=== PATIENT | female | born 1940 | race Caucasian/White ===

== ENCOUNTER 2019-08-25 05:40 | Outpatient (RCR) | payer MEDICARE ==
[~2019-08-25] VITALS: Ht 167.6 cm; Wt 79.5 kg
[2019-08-25] VITALS (10 sets, daily range): BP systolic 102–150; BP diastolic 44–69; PULSE 73–100; TEMP 98–98.6
[2019-08-25] MEDS ORDERED: NEURONTIN300 MG/CAP PO (06:08)
[2019-08-25] MEDS ORDERED: LIPITOR20 MG PO (06:08)
[2019-08-25] MEDS ORDERED: IMDUR 30MG30 MG/TAB PO (06:09)
[2019-08-25] MEDS ORDERED: TOPROL XL 25MG25 MG PO (06:09)
[2019-08-25] MEDS ORDERED: PROVIGIL200 MG PO (06:10)
[2019-08-25] MEDS ORDERED: MIRAPEX0.25 MG PO (06:11)
[2019-08-25] MEDS ORDERED: NITROSTAT0.4 MG/TAB SL (06:11)
[2019-08-25] MEDS ORDERED: ZANAFLEX 4MG TAB4 MG PO (06:12)
[2019-08-25] MEDS ORDERED: PROVENTIL0.09 MG/A1 IH (06:14)
[2019-08-25] MEDS ORDERED: ASPIRIN E.C. 8181 MG PO (06:14)
[2019-08-25] MEDS ORDERED: FERROUS SU325 MG/TAB PO (06:15)
[2019-08-25] MEDS ORDERED: PROTONIX 40MG T40 MG PO (06:16)
[2019-08-25] MEDS ORDERED: CEPHALEXIN500 M1 PO (06:16)
[2019-08-25] MEDS ORDERED: HYGROTON 2525 MG/TAB PO (06:17)
[2019-08-25 06:44] LABS: BASO % 0.5 % (0.0-2.0); EOS # 0.3 (0.0-0.7); EOS % 4.1 % (0-4.0); GRAN # 6.2 (1.4-6.5); GRAN % 76.6 % (42.2-75.2); LYMPH # 0.7 (1.2-3.4); LYMPH % 8.1 % (20.0-51.0); MEAN CELL VOLUME 104 fl (80.0-100.0); MEAN CORPUSCULAR HGB CONC 30 g/dl (33.0-37.0); MEAN PLATELET VOLUME 12.3 fl (7.4-10.4); MONO # 0.8 (0.1-0.6); MONO % 10.1 % (1.7-9.3); PLATELET COUNT 181 K/mm3 (130-400); RED BLOOD COUNT 2.03 M/mm3 (4.10-5.30); REDCELL DISTRIBUTION WIDTH-CV 22.2 % (11.5-14.5)
[2019-08-25 06:48] LABS: HEMATOCRIT 21.2 % (37.0-47.0); HEMOGLOBIN 6.3 g/dl (12.5-16.0); MEAN CORPUSCULAR HEMOGLOBIN 31 pg (27.0-31.0)
[2019-08-25 06:55] LABS: ALBUMIN 3.6 gm/dL (3.5-5.0); BILIRUBIN,TOTAL 0.3 mg/dL (0.0-1.0); CALCIUM 8.9 mg/dL (8.4-10.2); POTASSIUM 4.9 mmol/L (3.4-5.0); TOTAL PROTEIN 6.4 gm/dL (6.4-8.2)
[2019-08-25 07:22] LABS: IRON,SERUM 26 ug/dL (35-150)
[2019-08-25 07:31] LABS: TOTAL IRON BINDING CAPACITY 232 ug/dL (265-497)
--- NOTE | 2019-08-25 10:04 | NUR ---
Pt arrived to unit for blood transfusion. Patient is alert and oriented with VSS. Pt HGB of 6.3. Order for 2 units of PRBCs. 1st unit is currently running. Patient denies any medical history. She is difficult as she does not want to answer questions and keeps stating she wants to go home. Informed patient of her dx and why she is here. Denies other needs at this time. Will continue to monitor
--- NOTE | 2019-08-25 10:17 | NUR ---
Pt tolerating transfusion well. Infusion in IV to left forearm. Sitting in bed working on her puzzle. Denies pain, chest pain, SOB. No concerns at this time. Call light within reach, will continue to monitor
--- NOTE | 2019-08-25 14:18 | NUR ---
Pt on her 2nd transfusion to L AC. Tolerating well. In room eating lunch. Denies pain or any other concerns at this time. Call light within reach, will continue to monitor
--- NOTE | 2019-08-25 16:24 | NUR ---
Pt completed both units of blood. Tolerated well. VSS. No pain or concerns at this time. Call light within reach, will continue to monitor
[2019-08-25 17:13] LABS: BASO # 0.1 (0.0-0.2); BASO % 0.7 % (0.0-2.0); EOS # 0.3 (0.0-0.7); EOS % 3.4 % (0-4.0); GRAN # 6.4 (1.4-6.5); GRAN % 77.5 % (42.2-75.2); LYMPH # 0.6 (1.2-3.4); LYMPH % 7.7 % (20.0-51.0); MEAN CORPUSCULAR HGB CONC 31 g/dl (33.0-37.0); MONO # 0.8 (0.1-0.6); MONO % 10.1 % (1.7-9.3); PLATELET COUNT 169 K/mm3 (130-400); RED BLOOD COUNT 2.86 M/mm3 (4.10-5.30); REDCELL DISTRIBUTION WIDTH-CV 22.5 % (11.5-14.5)
[2019-08-25 17:30] LABS: HEMATOCRIT 27.8 % (37.0-47.0); HEMOGLOBIN 8.7 g/dl (12.5-16.0); MEAN CELL VOLUME 97 fl (80.0-100.0); MEAN CORPUSCULAR HEMOGLOBIN 30 pg (27.0-31.0)
--- NOTE | 2019-08-25 18:29 | NUR ---
Pt discharged and taken out by PATIENT CONSUMER MARKETER and VCV worker. IV taken out, catheter tip intact. All questions asked and answered.
== END 2019-08-25 18:00 | disposition home or self-care (01) ==
LOC: COL.ER 05:40 → EUO 05:40 → EDSTATUS 07:41 → MEDICAL 09:26 → EUO 18:00
PROVIDERS: Emergency Medicine
DX: D64.9 Anemia, unspecified (principal)
CPT/HCPCS: OP; P9016

== ENCOUNTER 2019-09-07 18:09 | Inpatient (IN) | payer MEDICARE ==
[2019-09-07] VITALS (9 sets, daily range): BP systolic 85–118; BP diastolic 42–69; PULSE 62–106; TEMP 97.6–98.1
[~2019-09-07] VITALS: Ht 167.6 cm; Wt 81.8 kg
[2019-09-07 19:25] LABS: MEAN CELL VOLUME 106 fl (80.0-100.0); MEAN CORPUSCULAR HGB CONC 29 g/dl (33.0-37.0); MEAN PLATELET VOLUME 12.5 fl (7.4-10.4); PLATELET COUNT 192 K/mm3 (130-400); RED BLOOD COUNT 1.78 M/mm3 (4.10-5.30); REDCELL DISTRIBUTION WIDTH-CV 25.1 % (11.5-14.5)
[2019-09-07 19:31] LABS: HEMATOCRIT 18.9 % (37.0-47.0); HEMOGLOBIN 5.5 g/dl (12.5-16.0); MEAN CORPUSCULAR HEMOGLOBIN 31 pg (27.0-31.0)
[2019-09-07 19:38] LABS: ALBUMIN 3.6 gm/dL (3.5-5.0); BILIRUBIN,TOTAL 0.4 mg/dL (0.0-1.0); CALCIUM 7.8 mg/dL (8.4-10.2); CREATININE, serum 1.53 (0.52-1.25); TOTAL PROTEIN 6.4 gm/dL (6.4-8.2)
[2019-09-07 21:03] LABS: BAND 28 % (0-10); EOSINOPHIL 3 % (0-4); LYMPHOCYTE 9 % (20.0-51.0); METAMYELOCYTE 3 % (0-0); MYELOCYTE 4 % (0-0); NEUTROPHILS 51 % (42.0-75.2); PLATELET ESTIMATE NORMAL (NORMAL)
[2019-09-07 21:04] LABS: ANISOCYTOSIS 2+; POIKILOCYTOSIS 3+
[2019-09-07 23:59] LABS: COLLECTION METHOD CLEAN CATCH
[2019-09-08] VITALS (69 sets, daily range): BP systolic 72–142; BP diastolic 36–81; PULSE 58–115; TEMP 97.7–98.5; O2SAT 64–97
[2019-09-08 00:14] LABS: MUCOUS Present /lpf; PH 5 (5-8); URINE APPEARANCE Hazy; URINE BACTERIA Rare /hpf; URINE BILIRUBIN Negative (NEGATIVE); URINE BLOOD Negative (NEGATIVE); URINE COLOR Yellow; URINE GLUCOSE Negative (NEGATIVE); URINE KETONE Negative (NEGATIVE); URINE LEUKOCYTE ESTERASE 1+ (NEGATIVE); URINE NITRATE Negative (NEGATIVE); URINE PROTEIN(semi-quant) Negative (NEGATIVE); URINE RBC 0-2 /hpf; URINE UROBILINOGEN Negative (NEGATIVE)
[2019-09-08 00:50] LABS: PROTHROMBIN TIME 12.1 SECONDS (9.7-12.8)
[2019-09-08 07:12] LABS: MEAN CELL VOLUME 102 fl (80.0-100.0); MEAN CORPUSCULAR HGB CONC 30 g/dl (33.0-37.0); MEAN PLATELET VOLUME 13.2 fl (7.4-10.4); PLATELET COUNT 189 K/mm3 (130-400); RED BLOOD COUNT 2.66 M/mm3 (4.10-5.30)
[2019-09-08 07:19] LABS: HEMOGLOBIN 8.2 g/dl (12.5-16.0); MEAN CORPUSCULAR HEMOGLOBIN 31 pg (27.0-31.0)
--- NOTE | 2019-09-08 07:30 | NUR ---
PT UNCOOPERATIVE AND UNPLEASANT ALL NIGHT. COMPLAINED ABOUT WANTING TO GO HOME CONSTANTLY AFTER HER BLOOD WAS DONE BEING INFUSED AND MADE IT CLEAR SHE DID NOT WANT TO BE HERE. PT HAD ASKED TO GO THE BATHROOM SEVERAL TIMES, I GAVE HER THE OPTION OF USING THE TOILET IN THE ROOM, PUREWICK, AND BEDSIDE COMMODE AND SHE REFUSED ALL OPTIONS AND SAID "IM NOT USING THAT DISGUSTING THING". PT ALSO WOULD MAKE COMMENTS UNDER HER BREATH CALLING ME NAMES, SPECIFICALLY A "BITCH" AND KEPT TELLING ME TO GET OUT OF THE ROOM, WELL MY CHARGE NURSE, CHRISTINA. PT KEPT PULLING OFF HER PULSE OXEMETRY AND BLOOD PRESSURE CUFF, REFUSING TO KEEP THEM ON. PT ALSO REFUSED TO GET IN BED TO GET WEIGHT. AFTER BLOOD WAS TRANSFUSED AND I WENT TO CHECK ON PT TO GIVE HER IV LASIX, HER IV WAS REMOVED AND I ASKED HER WHERE IT WENT AND SHE SHRUGGED AND SAID "IT WAS DANGLING AND GOT PULLED OUT". AFTER HAVING PLANNING OFFICIAL PLACE ANOTHER ONE, I WENT BACK TO GIVE THE LASIX AND THE NEW IV WAS ALSO MISSING. I ASKED PT WHERE IT WAS AND SHE POINTED TO THE TRASH CAN AND I ASKED HOW DID THAT HAPPEN AND SHE SAID, "IT WAS DANGLING AND GOT PULLED OUT". SHE THEN SAID SHE DID NOT WANT THE LASIX SO IT WAS CHARTED NOT GIVEN AND SAVITA HOLLIS WAS NOTIFIED.
[2019-09-08 07:33] LABS: CREATININE, serum 1.46 (0.52-1.25); POTASSIUM 4.3 mmol/L (3.4-5.0)
[2019-09-08 07:58] LABS: BAND 20 % (0-10); EOSINOPHIL 4 % (0-4); LYMPHOCYTE 2 % (20.0-51.0); METAMYELOCYTE 1 % (0-0); MYELOCYTE 4 % (0-0); NEUTROPHILS 67 % (42.0-75.2); PLATELET ESTIMATE NORMAL (NORMAL)
[2019-09-08 07:59] LABS: POLYCHROMASIA 1+; SCHISTOCYTES 2+; TEAR DROP CELLS 2+
--- NOTE | 2019-09-08 12:30 | NUR ---
Call placed to Dr Kendrick's cell phone. Rings through and then rings stop. No answer and no option for voicemail. Office called at this time but it is closed for lunch.
--- NOTE | 2019-09-08 13:29 | NUR ---
The patient lives at [facility] in [facility]. PLACING JUDGE carlos contacted Suresh about DPOA-HC for the patient, a copy of DPOA-HC was faxed and placed in the patient's chart. The DPOA-HC designees are the patient's daughter, Faizan Carias and the patient's son-in-law, Jeffrey Carias . PLACING JUDGE student met with the patient but due to the patient's confusion attempted to contact Faizan, could not leave voicemail. PLACING JUDGE student contacted Jeffrey and he reports he will have Faizan contact MAGGIE gonzalez. director financial services will continue to follow.
--- NOTE | 2019-09-08 14:00 | NUR ---
Mireille's office called. Discussed consult with Preethi. She will notify Mireille.
--- NOTE | 2019-09-08 15:13 | NUR ---
Pt exhibits severe short term memory impairment. Has asked multiple times throughout shift why no one has placed sandra hose. This RN has attempted to assist with application and patient refuses each time stating she can do it herself, she wants to go home, and to leave her alone. Has refused almost all care today. Just wants to go "back to the place" attempted to call daughter/DPOA several times during shift, but she does not answer and does not have an option to leave a voicemail. Social work was able to reach who indicated he would contact . Echo and EKG were obtained after many requests and refusals by patient throughout shift.
--- NOTE | 2019-09-08 16:53 | NUR ---
Pt allows nurse to apply shyanne wraps to BLE. Both legs are tender Right greater than left.
--- NOTE | 2019-09-08 17:59 | NUR ---
Pt to room 317 via acc by RN. Assisted to bathroom to void, ua obtained. Ena notified of arrival and introduced to patient.
--- NOTE | 2019-09-08 18:22 | NUR ---
FIRST UNTIT OF BLOOD STARTED AT 1800, 2 PERSON VERIFY. THIS NURSE STAYED WITH P TFORST 15 MINS, PT HAD NO S/S ADVERSE REACTIONS. RESTING COMFORTABLY. NO CONSERNS OR ISSUES VOICED THIS SHIFT.
--- NOTE | 2019-09-08 18:24 | NUR ---
PT ADMITTED TO MEDICAL FLOOR AT THIS TIME.
--- NOTE | 2019-09-08 18:58 | NUR ---
PT REFUSING VITALS BEING TAKEN THEREFORE 02 CHECK HAS BEEN TAKEN OUT, PT ON ROOM AIR
--- NOTE | 2019-09-08 20:30 | NUR ---
Patient report received from YASMIN Sutherland at shift change, patient out in long in her wheel chair. Upon assessment at this time patient is sitting up in her wheelchair in her room. Reports that her back is bothering her. Alert and Oriented at this time, aware of her current situation. HS medications given, including her PRN zanaflex. Patient encouraged to either get in bed or sit up in the recliner and put her feet up. Pitting edema present to bliateral extremities, shyanne wraps applied in ICU. Patient has no IV and refuses to wear Tele. She is able to get up from her wheelchair and into the bathroom with SBA, steady gait. No other needs reported/observed at this time.
[2019-09-09] VITALS (9 sets, daily range): BP systolic 82–146; BP diastolic 30–78; PULSE 53–123; TEMP 97.5–99.5
--- NOTE | 2019-09-09 06:06 | NUR ---
Refused Daily Weight
--- NOTE | 2019-09-09 07:00 | NUR ---
Report received from YASMIN Felix. PT in bed resting, denies needs, will continue to monitor.
--- NOTE | 2019-09-09 07:19 | NUR ---
Patient repot given to YASMIN Hernandez at bedside. Patient awake in wheelchair. Blood presssure better this am.
[2019-09-09 08:34] LABS: MEAN CELL VOLUME 104 fl (80.0-100.0); MEAN CORPUSCULAR HGB CONC 30 g/dl (33.0-37.0); PLATELET COUNT 137 K/mm3 (130-400); RED BLOOD COUNT 2.31 M/mm3 (4.10-5.30); REDCELL DISTRIBUTION WIDTH-CV 24.6 % (11.5-14.5)
[2019-09-09 08:42] LABS: CALCIUM 7.7 mg/dL (8.4-10.2); CREATININE, serum 1.55 (0.52-1.25); HEMATOCRIT 23.9 % (37.0-47.0); HEMOGLOBIN 7.2 g/dl (12.5-16.0); MEAN CORPUSCULAR HEMOGLOBIN 31 pg (27.0-31.0); POTASSIUM 4.2 mmol/L (3.4-5.0)
--- NOTE | 2019-09-09 09:17 | NUR ---
Assessment charted. PT in chair at side of bed, out and about to stop personnel in hallways often for various needs. Called Mireille about GI consult and received orders. PT agreeable to EGD but not agreeble NPO until 3 pm, called endoscopy nurse and she spoke with Mireille, pt able to eat two jellos and sip water with meds and agreeableto NPO after this until 140 pm EGD. Consent signed, agreeable to IV placement for procedure today. Discussed am meds and procedure. Legs are weepy and cvered, does not want to chagne dressing now. Information printed and given to her about meds, med schedule, EGD. Denies pain, will continue to monitor.
[2019-09-09 09:43] LABS: BAND 23 % (0-10); EOSINOPHIL 2 % (0-4); HYPOCHROMIA 1+; LYMPHOCYTE 11 % (20.0-51.0); METAMYELOCYTE 2 % (0-0); MYELOCYTE 1 % (0-0); NEUTROPHILS 61 % (42.0-75.2); NUCLEATED RED BLOOD CELL 1 (0-6); PLATELET ESTIMATE NORMAL (NORMAL); SCHISTOCYTES 1+; TEAR DROP CELLS 1+
--- NOTE | 2019-09-09 13:59 | NUR ---
Forestry Technical Officer attended rounds with the team. MARVIN met with patient's daughter in law, Faizan (ph#[phone]) to discuss discharge plan. Patient is from [facility]. MARVIN presented Patient Choice form and Faizan states patient to return to [facility]. Faizan provided signature on form and MARVIN placed in chart. Faizan states patient's primary care physician is Dr. Carter out of [place]. MARVIN contacted Suresh at [facility] and faxed referral. MARVIN to continue to follow.
--- NOTE | 2019-09-09 15:30 | NUR ---
Pt returned from Endoscopy after EGD, resting in bed looking for dentures, refusing to get vitals, discussed and educated and pt agreeable to starting blood and knows about s/sx of a transfusion reaction. Resting in bed, dentures returned from endoscopy. Remaining with pt for first 15 minutes of transfusion reaction. Bedside report given to YASMIN Lacy who will resume care.
--- NOTE | 2019-09-09 16:13 | NUR ---
Attempted to get transfusion VS, was only able to get her BP, Pt uncooperative in attempt to get full set.
--- NOTE | 2019-09-09 18:35 | NUR ---
Pt resting in the room, one unit of PRBC transfused this afternoon, VS have remained stable.
--- NOTE | 2019-09-09 20:11 | NUR ---
Patient sitting in WC in bedroom. Presents as anxious and agitated. C/O ABD pain and nausea. See EMAR for zofran administered. warm blanket provided. attempted to comfort. Patient asked nurse to leave room. Encouraged patient to call with needs.
--- NOTE | 2019-09-09 21:59 | NUR ---
2054: Call from POWDER LINE REPAIRER reporting low oxygen saturation. Upon entering room patient sitting up in WC. Pale. SPO2 80-85% on room air. heary rate 128 by pulse oximetry. attempted to place oxygen by NC. Patient refused. Patient A/O x 4. anxious and agitated. requesting to be left alone. Call to carton inspector provider. Order received for Ativan 1mg IV NOW and to verify code status. Call to daughter. discussed patient condition and agitation. Disscussed Code status. Patient DNR. daughter states "She is very stubbron and independent, she might not let you do anything".
[2019-09-10] VITALS (9 sets, daily range): BP systolic 79–116; BP diastolic 30–50; PULSE 56–66; TEMP 96.7–98.5
--- NOTE | 2019-09-10 00:32 | NUR ---
Patient laying in bed awake watching TV. Presents with relaxed body posture. Does report c/o of right leg pain. See emar for medicatins administered. Oymask still in place. Requires frequent encouragement to leave oxygen in place. Attitude pleasant at this time. Wanting this nurse to stay in room. reminiscing about live. Denies needs at this time.
--- NOTE | 2019-09-10 01:58 | NUR ---
Patient attitude calm and pleasant. Continues to be restless and up in WC and out in hallway frequently without oxygen. Redirected back to room and bed. SPO2 78% while on room air. Oxygen via Oximask reapplied 10L for 10 minuets. Oxgen saturations 94%. Oxygen titrated down to 5 liters. Patient encouraged to leave oxgen in place.
--- NOTE | 2019-09-10 04:20 | NUR ---
See flow sheet for documented hypotension. Patient not Tachycardic with HR 55-68. SPO2 on 5L O2 94-96%. Patient opens eyes to stimulation but does not follow commands or verbalize. Eyes Round, equal, and reactive to light. Skin warm and dry. Face pale and ashen. See chart for AM labs obtained early. Hgb resulted @ 7.2 which is stable from previous draw. Call to Oncall provider. Order received for 250ml NS bolus and call if SBP <90.
[2019-09-10 04:42] LABS: MEAN CELL VOLUME 102 fl (80.0-100.0); MEAN CORPUSCULAR HGB CONC 30 g/dl (33.0-37.0); PLATELET COUNT 128 K/mm3 (130-400); RED BLOOD COUNT 2.38 M/mm3 (4.10-5.30); REDCELL DISTRIBUTION WIDTH-CV 24.6 % (11.5-14.5)
[2019-09-10 04:47] LABS: HEMATOCRIT 24.2 % (37.0-47.0); HEMOGLOBIN 7.2 g/dl (12.5-16.0); MEAN CORPUSCULAR HEMOGLOBIN 30 pg (27.0-31.0)
--- NOTE | 2019-09-10 04:48 | NUR ---
0330: CALL FROM TELEMETRY REPORTING ST DEPRESSION ON TELEMETRY. PATIENT NOT C/O CHEST PAIN OR DISCOMFORT. WILL NOT ANSWER YES OR NO WHEN ASKED DIRECTLY. UNABLE TO ABLE BLOOD PRESSURE AT THIS TIME D/T AGITATION. rt NOTIFIED FOR STAT EKG PER PROTOCOL TO CONFIRM TELEMETRY READINGS. EKG OBTAINED BY THIS NURSE AND RT WITH DIFFICULTY D/T PATIENT AGITATION. PATIENT STATES "JUST LEAVE ME ALONE". ONCALL PROVIDER CALLED WITH EKG READINGS AND COMPARISON TO ADMISSION EKG. NO NEW ORDERS RECEIVED AT THIS TIME. WILL CONTINUE TO MONITOR ORDER RECEIVED FOR ATIVAN 1MG IV NOW X 1 FOR AGITATION. PATIENT CONTINUES WITH LOW OXYGEN SATURATIONS 70-80% WHEN OXYGEN OFF.
[2019-09-10 04:51] LABS: CALCIUM 7.3 mg/dL (8.4-10.2); CREATININE, serum 1.48 (0.52-1.25)
[2019-09-10 05:39] LABS: ANISOCYTOSIS 2+; BAND 28 % (0-10); LYMPHOCYTE 10 % (20.0-51.0); METAMYELOCYTE 1 % (0-0); NEUTROPHILS 56 % (42.0-75.2); NUCLEATED RED BLOOD CELL 1 (0-6); PLATELET ESTIMATE DECREASED (NORMAL)
[2019-09-10 05:40] LABS: OVALOCYTES 1+; TEAR DROP CELLS 1+
--- NOTE | 2019-09-10 16:30 | NUR ---
Assessment completed, patient is lethargic, vital signs stable, B/P have been soft, patient was extremely agitated and anxious/ was having low B/P and low o2 sats, was given Ativan to help with agitation, she is now on 5L. o2 via OM to keeps sats > 90%, had given order to transfuse 1 unit PRBC and give 500cc IVF bolus, has reviewed records from outside faciliy and has called the Daughter / DPOA discussed plan of care and she has decided to transition patient to comfort cares, we are canceling all orders/tx and doing comfort measures only from this point forward
--- NOTE | 2019-09-10 17:45 | NUR ---
patient was given morphine around 1600 as she was having some labored breating and moaning, I updated of her condition, patient is on Comfort care only, no family present at this time
--- NOTE | 2019-09-11 01:43 | NUR ---
PATIENT HAS LABORED BREATHING THROUGHOUT NIGHT. PRN ROXANOL GIVEN FOR COMFORT AND BREATHING. 5 L O2 VIA OXYMASK. COARSE CRACKLES NOTED THROUGHOUT LUNGS. PRN ROXANOL GIVEN. WILL CONTINUE TO MONITOR.
[2019-09-11 03:57] VITALS: PULSE 77
--- NOTE | 2019-09-11 07:00 | NUR ---
Assessmen completed, patient is unresponsive, agonal breathing, o2 sats checked during the night were 70-80% on 5L. OM, they had given Roxanol in the night a couple times for air hunger per nursing report, lungs sounds are extremely dimnished, patient is comfort cares only per daughter Xochitl/RASHAD as of 09/10/19
--- NOTE | 2019-09-11 08:43 | NUR ---
RIN notified, referral number # [id number]. MARVIN Jarrell speaking with daughter Faizan regarding arrangements.
--- NOTE | 2019-09-11 08:45 | NUR ---
At 0810 I went in to check on patient, at that time i did not see the patient beathing, I was unable to palpate a pulse, notified who came and pronounce at 08, We called Daughter/DPOA and informed her of her mothers passing, House superviosr /Social work notified and are working on the case
--- NOTE | 2019-09-11 12:00 | NUR ---
MUD MIXER OPERATOR and myself have cleaned up the patient and her room, I removed PICC Line at this time, and have done post-mortum cares, clean linens and gown placed, patients personaly belongings gathered and placed on bench in the room, Social work has been in contact and is working with the daughter for cremation/mortuary arrangements, no family present at this time
--- NOTE | 2019-09-11 15:45 | NUR ---
patients family has arrived and is working with elementary school social worker on home arrangements
--- NOTE | 2019-09-11 17:00 | NUR ---
[facility] ([place], [place]) [facility] has accepted to cremate the body, [facility] was called to shredder picker the body due the weather but both places were unable to shredder picker the body at this time do to weather. They will attempt on Thursday. The room was cooled and ice packs placed on the body.
--- NOTE | 2019-09-11 17:04 | NUR ---
informed by the house superviosr at this time that [facility] / mortuary of family choice is out of [place] and due to bad weather would not be unable to do medicinal plant picker untill 09/12/ a.m, untill then we are to keep patient in room [address] packs and keep room as cool as possible through the night, family understands plan of action, family taking personal belongings with them and have the signed for these belongings
--- NOTE | 2019-09-11 19:07 | NUR ---
Report recieved. Ice packs in place et room temp as low as possible. Will continue to keep cool until mortuary pickup tomorrow am.
== END 2019-09-11 08:05 | disposition expired | DRG 812 ==
LOC: COL.ER 18:09 → MEDICAL 22:57 → ICU 22:57 → IMCU 23:18 → MEDICAL 09-08 18:11
PROVIDERS: Emergency Medicine; Internal Medicine Gastroenterology; Nurse Practitioner Family; ADMIT Hospitalist
PROC: 02HV33Z Insertion of Infusion Device into Superior Vena Cava, Percutaneous Approach (ICD-10-PCS; 2019-09-09)
PROC: 0DJ08ZZ Inspection of Upper Intestinal Tract, Via Natural or Artificial Opening Endoscopic (ICD-10-PCS; principal; 2019-09-09 13:45)
DX: D50.0 Iron deficiency anemia secondary to blood loss (chronic) (principal); I13.0 Hypertensive heart and chronic kidney disease with heart failure and stage 1 through stage 4 chronic kidney disease, or unspecified chronic kidney disease; J96.11 Chronic respiratory failure with hypoxia; J96.12 Chronic respiratory failure with hypercapnia; I50.32 Chronic diastolic (congestive) heart failure; N17.9 Acute kidney failure, unspecified; K21.9 Gastro-esophageal reflux disease without esophagitis; N18.9 Chronic kidney disease, unspecified; I73.9 Peripheral vascular disease, unspecified; G47.419 Narcolepsy without cataplexy; Z66 Do not resuscitate; I95.9 Hypotension, unspecified; R00.0 Tachycardia, unspecified; F41.9 Anxiety disorder, unspecified; F03.90 Unspecified dementia, unspecified severity, without behavioral disturbance, psychotic disturbance, mood disturbance, and anxiety; I27.20 Pulmonary hypertension, unspecified; D50.9 Iron deficiency anemia, unspecified; J44.9 Chronic obstructive pulmonary disease, unspecified; E78.5 Hyperlipidemia, unspecified; I25.10 Atherosclerotic heart disease of native coronary artery without angina pectoris; I65.23 Occlusion and stenosis of bilateral carotid arteries; F32.9 Major depressive disorder, single episode, unspecified; M10.9 Gout, unspecified; Z79.82 Long term (current) use of aspirin; G25.81 Restless legs syndrome; M62.838 Other muscle spasm
CPT/HCPCS: 99222-AI; 99232-AI; 99233-AI; 99239; C1751; C9113; J1940; J2060; J2270; J2405; J2704; J7030; J7040; J7050; P9016

== ENCOUNTER → 2019-09-07 | Outpatient (CLI) | payer MEDICARE ==
[~2019-09-07] MED LIST: ASPIRIN E.C. 8181 MG PO; CEPHALEXIN500 M1 PO; FERROUS SU325 MG/TAB PO; HYGROTON 2525 MG/TAB PO; IMDUR 30MG30 MG/TAB PO; LIPITOR20 MG PO; MIRAPEX0.25 MG PO; NEURONTIN300 MG/CAP PO; NITROSTAT0.4 MG/TAB SL; PROTONIX 40MG T40 MG PO; PROVENTIL0.09 MG/A1 IH; PROVIGIL200 MG PO; TOPROL XL 25MG25 MG PO; ZANAFLEX 4MG TAB4 MG PO
[2019-09-07 10:37] LABS: MEAN CELL VOLUME 106 fl (80.0-100.0); MEAN CORPUSCULAR HGB CONC 29 g/dl (33.0-37.0); MEAN PLATELET VOLUME 13.2 fl (7.4-10.4); PLATELET COUNT 207 K/mm3 (130-400); REDCELL DISTRIBUTION WIDTH-CV 24.8 % (11.5-14.5)
[2019-09-07 10:50] LABS: HEMATOCRIT 19.1 % (37.0-47.0); HEMOGLOBIN 5.6 g/dl (12.5-16.0); MEAN CORPUSCULAR HEMOGLOBIN 31 pg (27.0-31.0)
[2019-09-07 10:57] LABS: ALBUMIN 3.4 gm/dL (3.5-5.0); BILIRUBIN,TOTAL 0.3 mg/dL (0.0-1.0); CALCIUM 7.9 mg/dL (8.4-10.2); CREATININE, serum 1.7 (0.52-1.25); POTASSIUM 5.1 mmol/L (3.4-5.0); TOTAL PROTEIN 5.9 gm/dL (6.4-8.2)
[2019-09-07 14:15] LABS: BAND 27 % (0-10); EOSINOPHIL 4 % (0-4); LYMPHOCYTE 8 % (20.0-51.0); MYELOCYTE 4 % (0-0); NEUTROPHILS 53 % (42.0-75.2); NUCLEATED RED BLOOD CELL 2 (0-6); OVALOCYTES 3+; PLATELET ESTIMATE NORMAL (NORMAL); SCHISTOCYTES 2+
[2019-09-07 14:16] LABS: POLYCHROMASIA 1+; TARGET CELLS 1+
[2019-09-08 09:02] LABS: PATHOLOGY DIFF REVIEW OK
== END ==
LOC: ZLAB.STJ 10:14
DX: N18.3 Chronic kidney disease, stage 3 (moderate) (principal); D63.1 Anemia in chronic kidney disease